=== PATIENT | female | born 1995 | race Caucasian/White ===

== ENCOUNTER 2017-07-07 13:39 | Emergency (ER) | payer MEDICAID ==
[2017-07-07 14:11] VITALS: BP 143/99
--- NOTE | 2017-07-07 14:30 | EDM.PDOC ---
ED HPI GENERAL MEDICAL PROBLEM - General Chief Complaint: ENT Problem Stated Complaint: TOOTH PAIN Time Seen by Provider: 07/07/17 14:20 Source of Information: Reports: Patient, RN Notes Reviewed - History of Present Illness INITIAL COMMENTS - FREE TEXT/NARRATIVE: 21-year-old female comes in with dental pain. She's had a cavitated somewhat chipped tooth for quite a long time. However that had not been given her much trouble up until a few days ago when she started having fairly severe pain not relieved with Tylenol or ibuprofen. She's had no fever chills. No facial swelling. No throat swelling or discomfort. 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 Denies: Throat Pain Respiratory: Denies: Shortness of Breath Cardiovascular: Denies: Chest Pain GI/Abdominal: Denies: Abdominal Pain, Nausea, Vomiting Musculoskeletal: Reports: No Symptoms Skin: Reports: No Symptoms Neurological: Reports: No Symptoms ED EXAM, ENT - Physical Exam Exam: See Below General Appearance: Alert, Moderate Distress Mouth/Throat: Dental Pain (right lower first molar, there is spurring minimal swelling of the gum tissue, no active drainage) Head: Facial Tenderness (mild tenderness of the jaw lateral to the tooth). No: Facial Swelling Neck: Supple, Full Range of Motion. No: Lymphadenopathy (L), Lymphadenopathy (R ) Respiratory/Chest: No Respiratory Distress, Lungs Clear, Normal Breath Sounds Cardiovascular: Regular Rate, Rhythm Neurological: Alert, Oriented, No Motor/Sensory Deficits Course - Vital Signs Last Recorded V/S: Last Vital Signs Temp 97.5 F 07/07/17 14:09 Pulse 79 07/07/17 14:09 Resp 20 07/07/17 14:09 BP 143/99 H 07/07/17 14:09 Pulse Ox 99 07/07/17 14:09 Departure - Departure Time of Disposition: 14:26 Disposition: Home, Self-Care 01 Condition: Fair Clinical Impression: Pain, dental - Discharge Information Prescriptions: Hydrocodone/Acetaminophen [Ivanhoe 5-325] 1 tab PO Q6HR PRN #10 tablet PRN Reason: Pain Naproxen [Naprosyn] 500 mg PO Q12HR #14 tablet Clindamycin HCl 300 mg PO TID #30 capsule Referrals: Hemal Ryan MD [Primary Care Provider] - Forms: ED Department Discharge, ED Return to Work/School Form Additional Instructions: clindamycin 500 mg 3 times daily, Naprosyn 500 mg twice daily, Tylenol 2-3 times daily in addition for extra pain relief or hydrocodone, especially at night if needed for severe pain not relieved by Naprosyn and Tylenol, do not take Tylenol and hydrocodone at the same time, do not drive when taking hydrocodone, see dentist as soon as possible
== END 2017-07-07 15:03 | disposition home or self-care (01) ==
LOC: JD.ED 13:39
DX: K08.89 Other specified disorders of teeth and supporting structures (principal); Z88.1 Allergy status to other antibiotic agents; Z79.899 Other long term (current) drug therapy
CPT/HCPCS: 99283

== ENCOUNTER 2017-08-08 16:05 | Emergency (ER) | payer MEDICAID ==
[2017-08-08 16:57] VITALS: BP 111/85
--- NOTE | 2017-08-08 16:59 | EDM.PDOC ---
ED HPI GENERAL MEDICAL PROBLEM - General Chief Complaint: ENT Problem Stated Complaint: TOOTH ACHE Time Seen by Provider: 08/08/17 16:45 Source of Information: Reports: Patient History Limitations: Reports: No Limitations - History of Present Illness INITIAL COMMENTS - FREE TEXT/NARRATIVE: 22-year-old female presents to the ED with severe pain left upper molar tooth. She's had positive his tooth once before. No said it is suffering dental caries but it's usually been nonproblematic. She received medication about 2 months ago for same pain. She had a dental problem arranged for this week but unfortunately her father and she had to leave the city last week. She now is a next dental product for scheduled for August 13. Describes pain is constant throbbing. Onset: Sudden Onset Date: 08/07/17 Duration: Hour(s): (Pain came on gradually yesterday and was quite bad during the night.) Location: Reports: Face (Left upper molar dental pain) Quality: Reports: Ache, Pressure, Throbbing Severity: Moderate Improves with: Reports: None Worsens with: Reports: None Context: Denies: Activity, Exercise, Lifting, Sick Contact, Trauma, Other Associated Symptoms: Reports: No Other Symptoms Treatments HISTORICAL RECORDS ADMINISTRATOR: Reports: NSAIDS, Other Medication(s), Other (see below) Other Treatments HISTORICAL RECORDS ADMINISTRATOR: Oragel Left Upper Oral/Mouth Pain Score (Numeric/FACES): 7 - Related Data Allergies Allergy/AdvReac Type Severity Reaction Status Date / Time amoxicillin Allergy Rash Verified 08/08/17 16:35 Home Meds: Home Meds Escitalopram [Lexapro] 10 mg PO DAILY 07/07/17 [History] Clindamycin HCl 300 mg PO TID #24 capsule 08/08/17 [Rx] Ibuprofen 600 mg PO Q8HR PRN 08/08/17 [History] oxyCODONE HCl/Acetaminophen [Percocet 5-325 mg Tablet] 1 - 2 each PO Q4H PRN # 20 tablet 08/08/17 [Rx] Past Medical History - Past Health History Medical/Surgical History: Denies Medical/Surgical History Genitourinary History: Reports: Renal Calculus Other Genitourinary History: Surgery 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 - Alcohol Use Days Per Week of Alcohol Use: 3 Number of Drinks Per Day: 2 Total Drinks Per Week: 6 - Recreational Drug Use Recreational Drug Use: No - Living Situation & Occupation Living situation: Reports: Occupation: Employed ED ROS ENT - Review of Systems Review Of Systems: See Below Constitutional: Reports: Fatigue, Decreased Appetite (From not sleeping.). Denies: Fever, Chills, Malaise, Weakness, Weight Loss HEENT: Reports: Dental Pain (Left upper molar tooth. She also has some bad dental caries involving the right lower first and second molar teeth. ) Respiratory: Reports: No Symptoms Cardiovascular: Reports: No Symptoms Endocrine: Reports: No Symptoms GI/Abdominal: Reports: No Symptoms : Reports: No Symptoms Musculoskeletal: Reports: No Symptoms Skin: Reports: No Symptoms Neurological: Reports: No Symptoms Psychiatric: Reports: No Symptoms, Other Hematologic/Lymphatic: Reports: No Symptoms Immunologic: Reports: No Symptoms ED EXAM, ENT - Physical Exam Exam: See Below Exam Limited By: No Limitations General Appearance: Alert, WD/WN, Mild Distress Eye Exam: Bilateral Eye: Normal Inspection Ears: Normal TMs Mouth/Throat: Dental Abcess (Suspect dental abscess left upper second molar tooth.), Dental Pain (Upper second molar tooth.), Dental Tenderness, Other ( Dental caries noted to be involving the right lower first and second molars.) Head: Atraumatic, Normocephalic Neck: Normal Inspection, Supple, Non-Tender, Full Range of Motion. No: Lymphadenopathy (L), Lymphadenopathy (R) Respiratory/Chest: No Respiratory Distress, Lungs Clear, Normal Breath Sounds, No Accessory Muscle Use Cardiovascular: Regular Rate, Rhythm, No Edema, No Murmur, No Rub Course - Vital Signs Last Recorded V/S: Last Vital Signs Temp 36.7 C 08/08/17 16:40 Pulse 76 08/08/17 16:40 Resp 16 08/08/17 16:40 BP 111/85 08/08/17 16:40 Pulse Ox 99 11/01/17 16:40 - Radiology Interpretation Free Text/Narrative:: 22-year-old female since the ED with acute onset of left upper molar dental pain. Examination shows no evidence of a dental abscess that I could drain. There is extensive dental caries involving the posterior aspect of this tooth. There is also dental caries involving the right lower second and first molars. Plan clindamycin 3 mg 3 times a day for 8 days Percocet tabs 5/3/25 one or 2 every 4-6 hours for pain relief in combination with Motrin or Aleve for pain relief. She has a follow-up with the dentist scheduled for next week. Note given to excuse her from the work place for the next couple of days. Departure - Departure Time of Disposition: 16:55 Disposition: Home, Self-Care 01 Condition: Fair Clinical Impression: Pain, dental, Pain due to dental caries - Discharge Information Prescriptions: Clindamycin HCl 300 mg PO TID #24 capsule oxyCODONE HCl/Acetaminophen [Percocet 5-325 mg Tablet] 1 - 2 each PO Q4H PRN # 20 tablet PRN Reason: pain relief. Referrals: PCP,None [Primary Care Provider] - Forms: ED Department Discharge, ED Return to Work/School Form Additional Instructions: Evaluation in the emergency department today in regards to dental pain left upper second molar tooth which is decayed. Suspect dental abscess formation to cause exacerbation of pain asthe dental carries have been present for a lengthy period of time. Suggest treatment to be antibiotic clindamycin 300 mg 3 times daily for the next 8 days to clear up any dental infection. Continue Motrin 600 mg every 6 hours or Aleve 2 tablets every 8 hours to relieve pain and inflammation. May use Percocet 5/3/25 milligram tablets one or 2 every 4-6 hours for pain not controlled by Motrin or Aleve alone. Follow-up with dentist as soon as able.
== END 2017-08-08 17:11 | disposition home or self-care (01) ==
LOC: JD.ED 16:05
DX: K02.9 Dental caries, unspecified (principal); F32.9 Major depressive disorder, single episode, unspecified; F17.210 Nicotine dependence, cigarettes, uncomplicated; Z88.1 Allergy status to other antibiotic agents; Z79.899 Other long term (current) drug therapy
CPT/HCPCS: 99283

== ENCOUNTER 2019-12-06 12:53 | Emergency (ER) | payer SELFPAY ==
[2019-12-06 13:26] VITALS: BP 109/77; PULSE 113
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
[2019-12-06] MEDS ORDERED: Ibuprofen 800 MG Tab PO ONE (14:35)
== END 2019-12-06 14:40 | disposition home or self-care (01) ==
LOC: JD.ED 12:53
DX: R41.2 Retrograde amnesia (principal); F17.210 Nicotine dependence, cigarettes, uncomplicated; F32.9 Major depressive disorder, single episode, unspecified; Z79.899 Other long term (current) drug therapy; Z88.1 Allergy status to other antibiotic agents
CPT/HCPCS: 80306; 99284; A9270; 99282

== ENCOUNTER 2021-08-08 05:32 | Inpatient (IN) | payer MEDICAID ==
--- NOTE | 2021-08-07 21:55 | PCM.LDHP ---
L&D History of Present Illness - General Date of Service: 08/08/21 Admit Problem/Dx: Admission Diagnosis/Problem Admission Diagnosis/Problem 08/07/21 21:44 Peace is a 26-year-old 2 para 1-0-0-1 female at 39-2/7 weeks gestational age with an BRENT of 08/13/2021 admitted on the a.m. of 08/08/2021 for elective repeat section. Source of Information: Patient History Limitations: Reports: No Limitations - History of Present Illness Introduction:: Peace is a 26-year-old 2 para 1-0-0-1 female at 39-2/7 weeks gestational age with an BRENT of 08/13/2021 admitted on the a.m. of 08/08/2021 for elective repeat section. The procedure, risk, benefits, alternatives of care including attempt at vaginal after section are all discussed in detail with patient. She appears understand and wishes to proceed. 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 Patient had menarche at age 9. Cycles are q. 30 days. Last menstrual period however was unknown. She is not using any control at the time of conception. Patient has no history of abnormal Pap smears or STIs. First was done for failure to progress. Past obstetric history includes: Female delivered 11/14/2016 at 40-1/7 weeks gestational age after 22 hours of labor. Baby weighed 8 pounds 6 ouncesdelivered by primary section using epidural for anesthesia. Child's name is Rachael. course: First visit was on 02/09/2021 at 13-4/7 weeks gestational age. Because of unknown dates the ultrasound at that time was used to set her BRENT at 08/13/2021. 2 other ultrasounds done on 02/23/2021 and 03/28/2020 and were consistent with the initial ultrasound evaluation and estimation of dates. Patient was seen on a very regular basis throughout the . Her weight increased from 145.8 pounds to 171.1 pounds. Vital signs remained stable throughout the course and fundal height growth was appropriate. Patient has a history of anxiety and depression. She has been on sertraline 100 mg 2 tablets p.o. daily. EPDS score on 04/20/2021 was 27/30. Patient was referred to [facility] for treatment in addition to her sertraline therapy. First was done for failure to progress. Flu shot was given on 07/13/2021. Patient plans on breast-feeding but does have inverted nipples. Prequel noninvasive screen was low risk for trisomy 21, 18 and 13. She had Covid on 05/30/2021 and has had no continued symptomatology from this. Immunization record shows influenza shot on 07/13/2021. Tdap given on 05/25/2021. MMR shows rubella immunity. Laboratory evidence of varicella immunity noted. Patient pneumococcal immunization 2017. Laboratory testing: Blood is a positive with a negative antibody screen. First laboratory testing shows a hemoglobin of 12.5 g/dL. Platelets were 305,000. Pap smear was negative. Rubella titer shows immunity. RPR is nonreactive. Urine culture was negative. Hepatitis B surface antigen and HIV assays were both negative. Chlamydia, gonorrhea and HCV antibody were negative. Prequel noninvasive screen consistent with low risk for trisomy 21, 18 and 13. Second trimester labs showed a hemoglobin of 10.7 g/dL. Platelets were 213,000. 1 hour GTT was normal at 107. Group B strep screen was negative. Allergies: Amoxicillin which causes a rash Medications: 1. vitamins 1 daily 2. Zofran 4 mg every 4 hours as needed for nausea during early only. 3. Sertraline 100 mg tablets p.o. daily. Past medical history: 1. Anxiety/depression on medications 2. Amoxicillin which causes a rash 3. Kidney stones Past surgical history: 1. 2017failure to progress Family history: Mother is secondary to an MVA in May 2020did have a history of hypertension. Father is secondary to suicide in 2017had a history of a stroke.. 2 brothers are alive. Maternal grandmother is alive and well. Maternal grandfather is alive but with a history of diabetes and hypertension. Paternal grandmother is secondary to breast cancer. Paternal grandfather secondary to lung cancerwas a smoker. No anesthesia, bleeding, or blood clotting problems in the family. Social history: Patient is . She is not employed outside the home. She lives in [place], [place]. She does not use any significance alcohol, drugs or tobacco. is Steve Pinon. Review of systems: Review of systems: In general patient has no complaints. Baby has been active. No significant contractions have been noted. Skin: Negative Lungs: No infectious symptoms or shortness of breath Cardiovascular: No chest pain or exercise intolerance Breasts: No lumps, changes in size, pain, dimpling, discharge or axillary or supraclavicular concerns. GI: Negative : Findings consistent with term . Musculoskeletal: Negative Neurological: Negative Physical exam: In general the patient is well-developed, well-nourished, pleasant female of stated age in no acute distress. On last evaluation clinic on 08/03/2021 blood pressure is 106/68. Weight was 171 with a pregravid weight of 145.8. Height is 5 feet 2 inches. Pregravid BMI was 23.8 Skin is warm dry without lesions. HEENT, neck and back within normal limits. Lungs are clear with good breath sounds in all lung salcido. Cardiovascular exam shows regular and rhythm without murmurs. Breast exam is deferred have been done at first visit and found to be normal is not performed at this time. Patient does plan to breast-feed. Abdomen is gravid with last fundal height in clinic at 39 cm. Baby in vertex presentation.. Genital digital exam on 08/03/2021 showed cervix to be closed, 70% effaced, soft, mid position, -3 station, vertex presentation. Extremities and neurological exam are grossly within normal limits. 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 - Recreational Drug Use Recreational Drug Use: No - Living Situation & Occupation Living situation: Reports: Occupation: Employed H&P Review of Systems - Review of Systems: Review Of Systems: See Below L&D Exam - Exam Exam: See Below - Problem List (1) 39 weeks gestation of SNOMED Code(s): 42209949 ICD Code: Z3A.39 - 39 WEEKS GESTATION OF Status: Acute (2) Previous section SNOMED Code(s): 128053354 ICD Code: Z98.891 - HISTORY OF UTERINE SCAR FROM PREVIOUS SURGERY Status: Acute (3) Depression SNOMED Code(s): 85315578 ICD Code: F32.A - DEPRESSION, UNSPECIFIED Status: Acute Qualifiers: Depression Type: depression during Trimester: third trimester Qualified Code(s): O99.343 - Other mental disorders complicating , third trimester; F32.A - Depression, unspecified (4) Anxiety SNOMED Code(s): 16017014 ICD Code: F41.9 - ANXIETY DISORDER, UNSPECIFIED Status: Acute (5) History of COVID-19 SNOMED Code(s): 235139464020265953, 229271237349107072 ICD Code: Z86.16 - PERSONAL HISTORY OF COVID-19 Status: Acute Problem List Initiated/Reviewed/Updated: Yes Assessment/Plan Comment:: 1Mike Hand is a 26-year-old 2 para 1-0-0-1 female at 39-2/7 weeks gestational age with an BRENT of 08/13/2021 admitted on the a.m. of 08/08/2021 for elective repeat section. 2. Group B strep negative 3. History of previous section done for failure to progresspatient desires repeat section. 4. History of Covid in with no residual effects at this time. 5. Patient plans to breast-feed 6. Patient has had her flu immunization on 07/13/2021 and her Tdap on 05/25/2021 7. Risk factors for the include: Previous section, history of depression/anxietyon meds, rash from amoxicillin. Plan: 1. Repeat lower uterine segment transverse section through Pfannenstiel skin incision under spinal block. Procedure, risk, benefits, alternatives of care and follow-up were discussed in detail with patient. She appears understand and wishes to proceed. Consent has been signed. 2. Routine preoperative labs including type and screen, CBC, urine analysis, Covid testing per protocolpatient may not need this as she is within 3 months of her infection, RPR. 3. DVT prophylaxis with SCDs 4. Ancef 2 g IV preop for infection prophylaxis 5. Support breast-feeding decision 6. Valve Grinder to be in attendance for .
[~2021-08-08 05:32] MED LIST: Sodium Chloride 0.9% 10 ML Syringe FLUSH PRN
[2021-08-08] MEDS ORDERED: ceFAZolin 2 GM in Premix Bag 1 BAG IV ONE (05:59)
[2021-08-08] MEDS ORDERED: Citric Acid/Sodium Citrate Solution 30 ML Cup PO ONE (06:00)
[2021-08-08] MEDS ORDERED: Metoclopramide 10 MG/2 ML SDV IVPUSH ONE (06:00)
[2021-08-08] MEDS ORDERED: Lactated Ringers 1,000 ML ONE ×2 (06:03→08:16)
[2021-08-08] MEDS: Lactated Ringers 1,000 ML IV SCH ×2 (06:15→07:20)
[2021-08-08] MEDS ORDERED: Bupivacaine 0.5% 30 ML SDV ONE (07:20)
[2021-08-08] MEDS ORDERED: diphenhydrAMINE 50 MG/ML SDV IVPUSH PRN ×2 (07:28→10:23)
[2021-08-08] MEDS ORDERED: Ondansetron 4 MG/2 ML SDV IVPUSH PRN (07:28)
--- NOTE | 2021-08-08 07:38 | PCM.PREANE ---
Preanesthetic Assessment - Procedure Proposed Procedure: repeat Section - Anesthesia/Transfusion/Family Hx Anesthesia History: Prior Anesthesia Without Reaction Family History of Anesthesia Reaction: No Transfusion History: No Prior Transfusion(s) Intubation History: Unknown (denieds ) - Review of Systems General: No Symptoms Pulmonary: No Symptoms Cardiovascular: No Symptoms Gastrointestinal: No Symptoms Neurological: No Symptoms Other: Reports: Depression, Anxiety - Physical Assessment NPO Status Date: 08/07/21 NPO Status Time: 23:00 Vital Signs: Last Vital Signs Temp 36.9 C 08/08/21 05:51 Pulse 90 08/08/21 05:51 Resp 16 08/08/21 05:51 BP 135/98 H 08/08/21 05:51 Pulse Ox 98 08/08/21 05:51 Height: 1.57 m Weight: 78.925 kg ASA Class: 2 Mental Status: Alert & Oriented x3 Airway Class: Mallampati = 1 Dentition: Reports: Normal Dentition Thyro-Mental Finger Breadths: 3 Mouth Opening Finger Breadths: 5 ROM/Head Extension: Full Lungs: Clear to Auscultation, Normal Respiratory Effort Cardiovascular: Regular Rate, Regular Rhythm - Lab Values: Laboratory Last Values WBC 8.51 K/mm3 (3.98-10.04) 08/08/21 06:08 RBC 3.75 M/mm3 (3.98-5.22) L 08/08/21 06:08 Hgb 11.6 gm/dl (11.2-15.7) 08/08/21 06:08 Hct 35.3 % (34.1-44.9) 08/08/21 06:08 MCV 94.1 fl (79.4-94.8) 08/08/21 06:08 MCH 30.9 pg (25.6-32.2) 08/08/21 06:08 MCHC 32.9 g/dl (32.2-35.5) 08/08/21 06:08 RDW Std Deviation 43.0 fL (36.4-46.3) 08/08/21 06:08 Plt Count 190 K/mm3 (182-369) 08/08/21 06:08 MPV 10.9 fl (9.4-12.3) 08/08/21 06:08 Neut % (Auto) 61.2 % (34.0-71.1) 08/08/21 06:08 Lymph % (Auto) 28.2 % (19.3-51.7) 08/08/21 06:08 [place] % (Auto) 9.5 % (4.7-12.5) 08/08/21 06:08 Eos % (Auto) 0.7 (0.7-5.8) 08/08/21 06:08 Baso % (Auto) 0.2 % (0.1-1.2) 08/08/21 06:08 Neut # (Auto) 5.20 K/mm3 (1.56-6.13) 08/08/21 06:08 Lymph # (Auto) 2.40 K/mm3 (1.18-3.74) 08/08/21 06:08 [place] # (Auto) 0.81 K/mm3 (0.24-0.36) H 08/08/21 06:08 Eos # (Auto) 0.06 K/mm3 (0.04-0.36) 08/08/21 06:08 Baso # (Auto) 0.02 K/mm3 (0.01-0.08) 08/08/21 06:08 - Allergies Allergies/Adverse Reactions: Allergies Allergy/AdvReac Type Severity Reaction Status Date / Time amoxicillin Allergy Rash Verified 08/08/17 16:35 - Blood Blood Available: Yes - Anesthesia Plan Pre-Op Medication Ordered: Antacids - Acknowledgements Anesthesia Type Planned: Spinal Pt an Appropriate Candidate for the Planned Anesthesia: Yes Alternatives and Risks of Anesthesia Discussed w Pt/Guardian: Yes Pt/Guardian Understands and Agrees with Anesthesia Plan: Yes PreAnesthesia Questionnaire - Past Health History Medical/Surgical History: Denies Medical/Surgical History Genitourinary History: Reports: Renal Calculus Other Genitourinary History: 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: Psychiatric History: Reports: Anxiety, Depression - Infectious Disease History Infectious Disease History: Reports: Chicken Pox - Past Surgical History Female Surgical History: Reports: Kidney stone extraction - SUBSTANCE USE Tobacco Use Status *Q: Never Tobacco User Tobacco Use Within Last Twelve Months: Vaping Recreational Drug Use History: No - HOME MEDS Home Medications: Home Meds Sertraline [Zoloft] 150 mg PO DAILY 12/06/19 [History] Acetaminophen [Tylenol] 650 mg PO Q6HR PRN 08/07/21 [History] Pnv,Calcium 72/Iron,Carb/Folic [ Plus Iron Tablet] 1 each PO DAILY 08/07/21 [History] - CURRENT (IN HOUSE) MEDS Current Meds: Current Medications Diphenhydramine HCl (Diphenhydramine 50 Mg/Ml Sdv) 25 mg IVPUSH Q6H PRN PRN Reason: Pruritis Oxytocin/Lactated Ringer's (Pitocin In Lr 20 Units/1,000 Ml) 20 unit in 1,000 mls @ 500 mls/hr IV TITRATE CHELLE; Protocol Lactated Ringer's (Ringers, Lactated) 1,000 mls @ 125 mls/hr IV ASDIRECTED CHELLE Last Admin: 08/08/21 07:20 Dose: 125 mls/hr Documented by: Ondansetron HCl (Ondansetron 4 Mg/2 Ml Sdv) 4 mg IVPUSH ONETIME PRN PRN Reason: Nausea/Vomiting Sodium Chloride (Sodium Chloride 0.9% 10 Ml Syringe) 10 ml FLUSH ASDIRECTED PRN PRN Reason: Keep Vein Open Discontinued Medications Bupivacaine HCl (Bupivacaine 0.5% 30 Ml Sdv) Confirm Administered Dose 30 ml .ROUTE .STK-MED ONE Stop: 08/08/21 07:21 Citric Acid/Sodium Citrate (Citric Acid/Sodium Citrate Solution 30 Ml Cup) 30 ml PO ONETIME ONE Stop: 08/08/21 06:01 Last Admin: 08/08/21 07:21 Dose: 30 ml Documented by: Cefazolin Sodium/Dextrose 2 gm (/ Premix) 50 mls @ 100 mls/hr IV ONETIME ONE Stop: 08/08/21 06:28 Lactated Ringer's (Ringers, Lactated) Confirm Administered Dose 1,000 mls @ as directed .ROUTE .STK-MED ONE Stop: 08/08/21 06:04 Last Admin: 08/08/21 07:21 Dose: Not Given Documented by: Metoclopramide HCl (Metoclopramide 10 Mg/2 Ml Sdv) 10 mg IVPUSH ONETIME ONE Stop: 08/08/21 06:01 Last Admin: 08/08/21 07:21 Dose: 10 mg Documented by:
[2021-08-08] MEDS ORDERED: Oxytocin/Lactated Ringers 20 UNIT/1,000 ML BAG IV SCH (08:00)
[2021-08-08] MEDS ORDERED: ceFAZolin 1 GM Vial ONE (08:16)
[2021-08-08] MEDS ORDERED: Ondansetron 4 MG/2 ML SDV ONE (08:16)
[2021-08-08] MEDS ORDERED: Ketorolac 30 MG/ML SDV ONE (08:16)
[2021-08-08] MEDS ORDERED: Oxytocin 10 Units/1 ML SDV ONE (08:16)
[2021-08-08] MEDS ORDERED: Morphine PF 10 MG/10 ML SDV ONE (08:16)
--- NOTE | 2021-08-08 08:51 | PCM.POSTAN ---
POST ANESTHESIA ASSESSMENT - MENTAL STATUS Mental Status: Alert - VITAL SIGNS Vital Signs: Last Vital Signs 117/57 95 ra 75 11 97.5 Temp 36.9 C 08/08/21 05:51 Pulse 90 08/08/21 05:51 Resp 16 08/08/21 05:51 BP 135/98 H 08/08/21 05:51 Pulse Ox 98 08/08/21 05:51 - RESPIRATORY Respiratory Status: Respiratory Rate WNL, Airway Patent, O2 Saturation Stable, Supplemental Oxygen - CARDIOVASCULAR CV Status: Pulse Rate WNL, Blood Pressure Stable - GASTROINTESTINAL GI Status: No Symptoms - PAIN Pain Score: 0 - POST OP HYDRATION Hydration Status: Adequate & Stable
--- NOTE | 2021-08-08 09:15 | PCM.OPNOTE ---
- General Post-Op/Procedure Note Date of Surgery/Procedure: 08/08/21 Operative Procedure(s): Repeat lower uterine segment transverse section through Pfannenstiel skin incision Findings: Uterus, tubes and ovaries consistent with term . Only abnormality is small 1 cm fibroid right anterior portion of the uterus. Otherwise normal anatomy. Minimal scarring noted in the anterior abdominal wall baby in vertex presentation. Amniotic fluid is clear. Weight was 8 pounds 6 ounces (3800 g). Apgars were 8 and 8. time was 0319 hrs. on 08/08/2021 Pre Op Diagnosis: 1. 39-week intrauterine . 2. History of previous section desire for repeat section Post-Op Diagnosis: Same Anesthesia Technique: Spinal Other Anesthesia Type: Marcaine 0.5% - 20 cc local Primary Surgeon: Hemal Ryan Secondary Surgeon: Darya Fleming Anesthesia Provider: Francine Toribio Reason Box Toe Flanger Stitchdowns Was Necessary: Traction, assistance, patient safety, quality of care. Fluid Replacement, Intraop: 1,000 Output, Urine Amount: 50 EBL in mLs: 500 Drain/Tube Comments:: Indwelling bladder catheter Complications: None Condition: Good Free Text/Narrative:: Intake & Output 08/07/21 08/08/21 08/08/21 22:59 06:59 14:59 Output Total 50 Balance -50 Surgery duration: 24 minutes Surgery duration: Procedure: The patient is appropriately consented. Patient was transferred to the room and placed in a sitting position. Spinal anesthesia was administered. After confirmation of adequate anesthesia patient was placed in a supine position with a wedge under her right side to facilitate left lateral positioning. The patient was prepped and draped in usual fashion after Tang catheter was already placed . The anesthetic was checked and found to be adequate. 20 mL of Marcaine 0.5% was injected locally in the Pfannenstiel incision site. The Pfannenstiel skin incision was then made and carried down through skin, subcutaneous and fascial layers. The fascia was then undermined superiorly and inferiorly to allow for adequate operating room. The recti muscles midline and preperitoneal fat was bluntly dissected. Peritoneal cavity was entered longitudinally. The vesicouterine peritoneum was then incised transversely and bladder flap was developed. Myometrium was incised transversely to the level of the amniotic sac. This incision was extended bilaterally in a blunt fashion. The amniotic sac was then ruptured resulting in clear amniotic fluid. A hand is placed in the low uterine segment and the baby's head was brought forth through the incision. The baby was completely delivered using fundal pressure in a routine fashion. The nose and mouth were bulb suctioned. Baby's cord was clamped x2 cut and baby was handed off to attending violin repairer Dr Leslie. Placenta was expressed after cord blood was obtained. Uterus was then exteriorized to allow for easier closure. The cervix was assessed and found to be dilated adequately to allow egress of blood. The uterus was closed in 2 layers. The first layer a running locked suture of 0 Monocryl, the second layer a running locked vertical mattress suture of 0 Monocryl. Hemostasis confirmed at this time. Sponge instrument needle counts are correct. The uterus was returned to the abdominal cavity and lateral gutters were cleared of blood. Once again sponge needle counts are correct. The anterior abdominal wall was closed with a #1 PDS suture from angle to angle. The subcutaneous area was found to be free of any bleeders. interrupted sutures of 3-0 Monocryl were used to reapproximate the subcutaneous layer.Skin was closed with a running subcuticular stitch of 3-0 Monocryl in a vertical mattress suture fashion using a Bryce needle. Prineo mesh/glue was then applied to further approximate the incision. It should be noted that patient received 2 g of Ancef preoperatively for infection prophylaxis and had Pitocin infused after delivery of the placenta to facilitate uterine contraction. She also had sequential compression stockings in place for DVT prophylaxis. Patient was discharged from the operating room in satisfactory condition.
[2021-08-08] MEDS ORDERED: ePHEDrine 50 MG/ML SDV IVPUSH PRN (10:23)
[2021-08-08] MEDS ORDERED: Dextrose 5%-Lactated Ringers 1,000 ML IV SCH (10:23)
[2021-08-08] MEDS ORDERED: Ondansetron 4 MG/2 ML SDV IV PRN (10:23)
[2021-08-08] MEDS ORDERED: Naloxone 0.4 MG/ML SDV IVPUSH PRN (10:23)
[2021-08-08] MEDS ORDERED: Acetaminophen/oxyCODONE 325-5 MG Tab PO PRN (10:23)
[2021-08-08] MEDS: Acetaminophen/oxyCODONE 325-5 MG Tab PO PRN ×4 (10:35→22:11)
[2021-08-08] MEDS: Ibuprofen 800 MG Tab PO SCH ×2 (14:33→22:11)
[2021-08-08] MEDS: Simethicone 80 MG Tab.Chew PO SCH ×3 (14:33→22:00)
[2021-08-08] MEDS ORDERED: Lactated Ringers 1,000 ML IV ONE (18:36)
[2021-08-09] MEDS: Acetaminophen/oxyCODONE 325-5 MG Tab PO PRN ×5 (03:55→21:13)
[2021-08-09] MEDS: Ibuprofen 800 MG Tab PO SCH ×3 (06:12→22:39)
--- NOTE | 2021-08-09 08:27 | PCM48HPAN ---
Post Anesthesia Note - EVALUATION WITHIN 48HRS OF ANESTHETIC Vital Signs in Normal Range: Yes Patient Participated in Evaluation: Yes Respiratory Function Stable: Yes Airway Patent: Yes Cardiovascular Function Stable: Yes Hydration Status Stable: Yes Pain Control Satisfactory: Yes Nausea and Vomiting Control Satisfactory: Yes Mental Status Recovered: Yes Vital Signs: Last Vital Signs Temp 98.2 F 08/09/21 06:09 Pulse 73 08/09/21 06:09 Resp 14 08/09/21 06:09 BP 135/87 08/09/21 06:09 Pulse Ox 99 08/09/21 06:09 - COMMENTS/OBSERVATIONS Free Text/Narrative:: rests in bed- some pain with movement
[2021-08-09] MEDS: Prenatal Multivitamin with Calcium/Folic Acid/Iron Tab PO SCH (08:51)
[2021-08-09] MEDS: Simethicone 80 MG Tab.Chew PO SCH ×4 (08:51→22:39)
[2021-08-09] MEDS: Sertraline 50 MG Tab PO SCH (08:56)
--- NOTE | 2021-08-09 09:24 | PCM.SN.2 ---
- Free Text/Narrative Note: note: Postoperative day #1. Patient is doing well in the period. Minimal lochia, voiding well, ambulated without problems. Nursing without concerns. Patient is afebrile, vital signs are stable Clear with good breath sounds in all lung salcido. Cardiovascular exam shows regular rate and rhythm. Abdomen is flat, soft, uterus is below the umbilicus and is firm and nontender. Incision is dry and intact. Legs are nontender. Globin is 10.1. Platelets are 165,000 Assessment: Postoperative/ #1recovery going well. Plan: Routine care. Patient be discharged home within the next 24-48 hours. Time Documentation
[2021-08-09] MEDS ORDERED: Nalbuphine 10 MG/1 ML Vial IVPUSH ONE (14:44)
[2021-08-09] MEDS ORDERED: hydrOXYzine HCl 25 MG Tab PO PRN (17:46)
[2021-08-09] MEDS: Docusate Sodium 100 MG Cap PO PRN (18:40)
[2021-08-10] MEDS: Acetaminophen/oxyCODONE 325-5 MG Tab PO PRN ×2 (01:29→06:09)
[2021-08-10] MEDS: Ibuprofen 800 MG Tab PO SCH (06:43)
[2021-08-10] MEDS: Docusate Sodium 100 MG Cap PO PRN (06:44)
--- NOTE | 2021-08-10 07:44 | PCM.DCSUM1 ---
Discharge Summary - Hospital Course Diagnosis: Stroke: No - Discharge Data Discharge Date: 08/10/21 Discharge Disposition: Home, Self-Care 01 Condition: Good - Referral to Home Health Primary Care Physician: Hemal Ryan MD - Patient Summary/Data Operative Procedure(s) Performed: Repeat lower uterine segment transverse section through Pfannenstiel skin incision Hospital Course: Weight was 8 pounds 6 ounces (3800 g). Apgars were 8 and 8. time was 0319 hrs. on 08/08/2021 POD2 expressed desire for discharge. Uncomplicated course - Patient Instructions Diet: Usual Diet as Tolerated Activity: No Strenuous Activities Activity, Other: pelvic rest Driving: Do Not Drive Showering/Bathing: May Shower Wound/Incision Care: Keep Operative Site/Wound Site Clean and Dry Notify Provider of: Fever, Increased Pain, Swelling and Redness, Drainage, Nausea and/or Vomiting - Discharge Plan *PRESCRIPTION DRUG MONITORING PROGRAM REVIEWED*: No *COPY OF PRESCRIPTION DRUG MONITORING REPORT IN PATIENT SEB: No Home Medications: Home Meds Sertraline [Zoloft] 150 mg PO DAILY 12/06/19 [History] Acetaminophen [Tylenol] 650 mg PO Q6HR PRN 08/07/21 [History] Pnv,Calcium 72/Iron,Carb/Folic [ Plus Iron Tablet] 1 each PO DAILY [History] Patient Handouts: Electronic Cigarette Information, Steps to Quit Smoking - Discharge Summary/Plan Comment DC Time >30 min.: No Total # of Minutes for Discharge Time: 15 - General Info Date of Service: 08/10/21 Functional Status: Reports: Pain Controlled - Review of Systems General: Reports: No Symptoms HEENT: Reports: No Symptoms Pulmonary: Reports: No Symptoms Cardiovascular: Reports: No Symptoms Gastrointestinal: Reports: No Symptoms Genitourinary: Reports: No Symptoms Musculoskeletal: Reports: No Symptoms Skin: Reports: No Symptoms Neurological: Reports: No Symptoms Psychiatric: Reports: No Symptoms - Patient Data Vitals - Most Recent: Last Vital Signs Temp 36.6 C 08/10/21 03:25 Pulse 64 08/10/21 03:25 Resp 15 08/10/21 03:25 BP 138/87 08/10/21 03:25 Pulse Ox 99 08/10/21 03:25 Weight - Most Recent: 78.925 kg Med Orders - Current: Current Medications Diphenhydramine HCl (Diphenhydramine 50 Mg/Ml Sdv) 25 mg IVPUSH Q6H PRN PRN Reason: Itching or Nausea Docusate Sodium (Docusate Sodium 100 Mg Cap) 100 mg PO Q12H PRN PRN Reason: Constipation Last Admin: 08/10/21 06:44 Dose: 100 mg Documented by: Ephedrine Sulfate (Ephedrine 50 Mg/Ml Sdv) 5 mg IVPUSH SEECOMMENT PRN PRN Reason: Other Hydroxyzine HCl (Hydroxyzine Hcl 25 Mg Tab) 25 mg PO Q6H PRN PRN Reason: Pain (moderate 4-6) Ibuprofen (Ibuprofen 800 Mg Tab) 800 mg PO Q8H [facility] Last Admin: 08/10/21 06:43 Dose: 800 mg Documented by: Naloxone HCl (Naloxone 0.4 Mg/Ml Sdv) 0.1 mg IVPUSH SEECOMMENT PRN PRN Reason: Respiratory Depression Ondansetron HCl (Ondansetron 4 Mg/2 Ml Sdv) 4 mg IV Q4H PRN PRN Reason: Nausea/Vomiting Oxycodone/Acetaminophen (Acetaminophen/Oxycodone 325-5 Mg Tab) 1 tab PO Q4H PRN PRN Reason: Pain (moderate 4-6) Oxycodone/Acetaminophen (Acetaminophen/Oxycodone 325-5 Mg Tab) 2 tab PO Q4H PRN PRN Reason: Pain (severe 7-10) Last Admin: 08/10/21 06:09 Dose: 2 tab Documented by: Prenat Multivit/[place]/Iron/Folic Ac ( Multivitamin With Calcium/Folic Acid/Iron Tab) 1 each PO DAILY [facility] Last Admin: 08/09/21 08:51 Dose: 1 each Documented by: Sertraline HCl (Sertraline 50 Mg Tab) 150 mg PO DAILY [facility] Last Admin: 08/09/21 08:56 Dose: 150 mg Documented by: Simethicone (Simethicone 80 Mg Tab.Chew) 80 mg PO 0900,1300,1800,2200 [facility] Last Admin: 08/09/21 22:39 Dose: 80 mg Documented by: Discontinued Medications Bupivacaine HCl (Bupivacaine 0.5% 30 Ml Sdv) Confirm Administered Dose 30 ml .ROUTE .STK-MED ONE Stop: 08/08/21 07:21 Last Admin: 08/08/21 09:23 Dose: 20 ml Documented by: Cefazolin Sodium (Cefazolin 1 Gm Vial) Confirm Administered Dose 2 gm .ROUTE .STK-MED ONE Stop: 08/08/21 08:17 Citric Acid/Sodium Citrate (Citric Acid/Sodium Citrate Solution 30 Ml Cup) 30 ml PO ONETIME ONE Stop: 08/08/21 06:01 Last Admin: 08/08/21 07:21 Dose: 30 ml Documented by: Diphenhydramine HCl (Diphenhydramine 50 Mg/Ml Sdv) 25 mg IVPUSH Q6H PRN PRN Reason: Pruritis Oxytocin/Lactated Ringer's (Pitocin In Lr 20 Units/1,000 Ml) 20 unit in 1,000 mls @ 500 mls/hr IV TITRATE CHELLE; Protocol Lactated Ringer's (Ringers, Lactated) 1,000 mls @ 125 mls/hr IV ASDIRECTED [facility] Last Admin: 08/08/21 07:20 Dose: 125 mls/hr Documented by: Cefazolin Sodium/Dextrose 2 gm (/ Premix) 50 mls @ 100 mls/hr IV ONETIME ONE Stop: 08/08/21 06:28 Last Admin: 08/08/21 10:58 Dose: Not Given Documented by: Lactated Ringer's (Ringers, Lactated) Confirm Administered Dose 1,000 mls @ as directed .ROUTE .ST-MED ONE Stop: 08/08/21 06:04 Last Admin: 08/08/21 07:21 Dose: Not Given Documented by: Lactated Ringer's (Ringers, Lactated) Confirm Administered Dose 1,000 mls @ as directed .ROUTE .ST-MED ONE Stop: 08/08/21 08:17 Dextrose/Lactated Ringer's (Dextrose 5%-Lactated Ringers) 1,000 mls @ 125 mls/hr IV ASDIRECTED [facility] Stop: 08/08/21 18:22 Last Admin: 08/08/21 10:36 Dose: 125 mls/hr Documented by: Lactated Ringer's (Ringers, Lactated) 1,000 mls @ 999 mls/hr IV .BOLUS ONE Stop: 08/08/21 19:36 Last Admin: 08/08/21 19:14 Dose: 999 mls/hr Documented by: Ketorolac Tromethamine (Ketorolac 30 Mg/Ml Sdv) Confirm Administered Dose 30 mg .ROUTE .STK-MED ONE Stop: 08/08/21 08:17 Metoclopramide HCl (Metoclopramide 10 Mg/2 Ml Sdv) 10 mg IVPUSH ONETIME ONE Stop: 08/08/21 06:01 Last Admin: 08/08/21 07:21 Dose: 10 mg Documented by: Morphine Sulfate (Morphine Pf 10 Mg/10 Ml Sdv) Confirm Administered Dose 10 mg .ROUTE .STK-MED ONE Stop: 08/08/21 08:17 Nalbuphine HCl (Nalbuphine 10 Mg/1 Ml Vial) 5 mg IVPUSH ONETIME ONE Stop: 08/09/21 14:45 Last Admin: 08/09/21 15:28 Dose: 5 mg Documented by: Ondansetron HCl (Ondansetron 4 Mg/2 Ml Sdv) 4 mg IVPUSH ONETIME PRN PRN Reason: Nausea/Vomiting Ondansetron HCl (Ondansetron 4 Mg/2 Ml Sdv) Confirm Administered Dose 4 mg .ROUTE .STK-MED ONE Stop: 08/08/21 08:17 Oxytocin (Oxytocin 10 Units/1 Ml Sdv) Confirm Administered Dose 20 unit .ROUTE .STK-MED ONE Stop: 08/08/21 08:17 Sodium Chloride (Sodium Chloride 0.9% 10 Ml Syringe) 10 ml FLUSH ASDIRECTED PRN PRN Reason: Keep Vein Open - Exam General: Reports: Alert, Oriented HEENT: Reports: Pupils Equal, Pupils Reactive, EOMI, Mucous Membr. Moist/[place] Neck: Reports: Supple Lungs: Reports: Clear to Auscultation, Normal Respiratory Effort Cardiovascular: Reports: Regular Rate, Regular Rhythm GI/Abdominal Exam: Normal Bowel Sounds, Soft, Non-Tender (Female) Exam: Deferred Rectal (Female) Exam: Normal Exam, Normal Rectal Tone Back Exam: Reports: Normal Inspection, Full Range of Motion Extremities: Normal Inspection, Normal Range of Motion, Non-Tender, No Pedal Edema, Normal Capillary Refill Skin: Reports: Warm, Dry, Intact Wound/Incisions: Reports: Healing Well Neurological: Reports: No New Focal Deficit Psy/Mental Status: Reports: Alert, Normal Affect, Normal Mood
[2021-08-10] MEDS: Sertraline 50 MG Tab PO SCH (08:46)
[2021-08-10] MEDS: Prenatal Multivitamin with Calcium/Folic Acid/Iron Tab PO SCH (08:46)
[2021-08-10] MEDS: Simethicone 80 MG Tab.Chew PO SCH (08:47)
[2021-08-10 10:35] VITALS: BP 136/93; PULSE 71
== END 2021-08-10 10:37 | disposition home or self-care (01) | DRG 788 ==
LOC: UNDOADMIN 05:32 → JD.OB 05:32 → UNDODISIN 08-10 10:37
PROVIDERS: ADMIT Obstetrics & Gynecology; ATTEND Obstetrics & Gynecology
PROC: 10D00Z1 Extraction of Products of Conception, Low, Open Approach (ICD-10-PCS; principal; 2021-08-08)
DX: O34.211 Maternal care for low transverse scar from previous cesarean delivery (principal); O99.344 Other mental disorders complicating childbirth; F41.9 Anxiety disorder, unspecified; F32.A Depression, unspecified; O34.13 Maternal care for benign tumor of corpus uteri, third trimester; D25.9 Leiomyoma of uterus, unspecified; Z3A.39 39 weeks gestation of pregnancy; Z37.0 Single live birth; Z88.0 Allergy status to penicillin; Z87.442 Personal history of urinary calculi; Z79.899 Other long term (current) drug therapy; Z86.16 Personal history of COVID-19
CPT/HCPCS: 01961; 36415; 59025; 85025; 86592; 86850; 86900; 86901; 94762; A9270-GY; J0690; J1885; J2270; J2300; J2405; J2590; J2765; J3490; J7120; J7121

== ENCOUNTER 2022-06-30 13:34 | Inpatient (IN) | payer MEDICAID ==
[2022-06-30] MEDS ORDERED: Ondansetron 4 MG/2 ML SDV IVPUSH ONE (14:00)
[2022-06-30] MEDS ORDERED: Lactated Ringers 1,000 ML IV ONE (14:00)
[2022-06-30] MEDS ORDERED: Ketorolac 15 MG/ML SDV IVPUSH ONE ×2 (14:00→16:03)
[2022-06-30] MEDS ORDERED: Morphine 4 MG/ML Syringe IVPUSH ONE ×2 (14:45→15:02)
[2022-06-30] MEDS: Potassium Chloride 10 MEQ in Premix Bag 1 BAG IV SCH ×8 (15:07→23:58)
[2022-06-30] MEDS ORDERED: Sodium Chloride 0.9% 1,000 ML IV SCH (15:15)
[2022-06-30] MEDS ORDERED: Magnesium Sulfate/Water 2 GM in Premix Bag 1 BAG IV ONE (15:30)
[2022-06-30] MEDS ORDERED: Morphine 2 MG/ML SYRINGE IVPUSH PRN (16:02)
[2022-06-30] MEDS ORDERED: Sodium Chloride 0.9% 10 ML Syringe FLUSH STA (16:14)
[2022-06-30] MEDS ORDERED: Iopamidol 612 MG/ML 100 ML Bottle IVPUSH ONE (16:14)
[2022-06-30] MEDS ORDERED: HYDROmorphone 1 MG/ML Syringe IVPUSH ONE (16:17)
[2022-06-30] MEDS ORDERED: Sodium Chloride 0.9% 10 ML Syringe FLUSH PRN (16:21)
[2022-06-30] MEDS ORDERED: Ondansetron 4 MG Tab.DIS PO PRN (16:23)
[2022-06-30] MEDS: HYDROmorphone 1 MG/ML Syringe IVPUSH PRN ×2 (18:18→21:42)
[2022-06-30] MEDS: Sodium Chloride 0.9% 1,000 ML IV SCH (20:24)
[2022-06-30] MEDS: Ondansetron 4 MG/2 ML SDV IV PRN (20:30)
[2022-06-30] MEDS: Heparin Sodium 5,000 Units/ML Vial SUBCUT SCH (20:42)
[2022-07-01] MEDS: Sodium Chloride 0.9% 1,000 ML IV SCH ×6 (00:37→23:58)
[2022-07-01] MEDS: Heparin Sodium 5,000 Units/ML Vial SUBCUT SCH ×3 (00:38→16:21)
[2022-07-01] MEDS: Potassium Chloride 10 MEQ in Premix Bag 1 BAG IV SCH ×2 (00:38→00:48)
[2022-07-01] MEDS: HYDROmorphone 1 MG/ML Syringe IVPUSH PRN ×9 (00:39→23:58)
[2022-07-01] MEDS: Ondansetron 4 MG/2 ML SDV IV PRN (03:02)
[2022-07-01] MEDS: Insulin Lispro 100 Unit/ML 3 ML KwikPen SUBCUT SCH (18:16)
[2022-07-02] MEDS: Insulin Lispro 100 Unit/ML 3 ML KwikPen SUBCUT SCH ×4 (00:03→18:01)
[2022-07-02] MEDS: Heparin Sodium 5,000 Units/ML Vial SUBCUT SCH ×3 (00:07→17:59)
[2022-07-02] MEDS: HYDROmorphone 1 MG/ML Syringe IVPUSH PRN ×6 (03:32→22:24)
[2022-07-02] MEDS: Sodium Chloride 0.9% 1,000 ML IV SCH ×6 (03:33→22:24)
[2022-07-03] MEDS: Insulin Lispro 100 Unit/ML 3 ML KwikPen SUBCUT SCH ×5 (00:43→23:22)
[2022-07-03] MEDS: Heparin Sodium 5,000 Units/ML Vial SUBCUT SCH ×5 (00:44→23:32)
[2022-07-03] MEDS: HYDROmorphone 1 MG/ML Syringe IVPUSH PRN ×3 (01:13→07:29)
[2022-07-03] MEDS: Sodium Chloride 0.9% 1,000 ML IV SCH ×3 (03:30→14:11)
[2022-07-03] MEDS: Morphine 2 MG/ML SYRINGE IVPUSH PRN ×3 (10:15→18:14)
[2022-07-03] MEDS ORDERED: Sodium Chloride 0.9% 1,000 ML IV SCH ×3 (19:00→23:00)
[2022-07-03] MEDS ORDERED: Morphine 2 MG/ML SYRINGE IVPUSH ONE (20:15)
[2022-07-03] MEDS ORDERED: LORazepam 2 MG/ML SDV IVPUSH ONE (20:15)
[2022-07-04] MEDS: Morphine 2 MG/ML SYRINGE IVPUSH PRN ×6 (00:21→21:22)
[2022-07-04] MEDS: Insulin Lispro 100 Unit/ML 3 ML KwikPen SUBCUT SCH ×4 (06:57→21:34)
[2022-07-04] MEDS: Sodium Chloride 0.9% 1,000 ML IV SCH ×2 (06:58→16:53)
[2022-07-04] MEDS: Potassium Chloride 10 MEQ in Premix Bag 1 BAG IV SCH ×8 (06:59→16:33)
[2022-07-04] MEDS ORDERED: LORazepam 2 MG/ML SDV IV SCH (07:00)
[2022-07-04] MEDS: Folic Acid 1 MG Tab PO SCH (08:34)
[2022-07-04] MEDS: Heparin Sodium 5,000 Units/ML Vial SUBCUT SCH ×2 (08:34→16:53)
[2022-07-04] MEDS: Thiamine 100 MG Tab PO SCH (08:34)
[2022-07-04] MEDS: LORazepam 1 MG Tab PO SCH ×2 (21:31→22:30)
[2022-07-05] MEDS: Morphine 2 MG/ML SYRINGE IVPUSH PRN ×3 (01:26→14:42)
[2022-07-05] MEDS: Heparin Sodium 5,000 Units/ML Vial SUBCUT SCH ×2 (01:26→09:08)
[2022-07-05] MEDS: Sodium Chloride 0.9% 1,000 ML IV SCH (03:41)
[2022-07-05] MEDS: LORazepam 1 MG Tab PO SCH (03:45)
[2022-07-05] MEDS ORDERED: Insulin Lispro 100 Unit/ML 3 ML KwikPen SUBCUT SCH (07:30)
[2022-07-05] MEDS ORDERED: Potassium Chloride 20 MEQ Tab.ER PO ONE (08:00)
[2022-07-05] MEDS: Folic Acid 1 MG Tab PO SCH (09:07)
[2022-07-05] MEDS: Thiamine 100 MG Tab PO SCH (09:07)
[2022-07-05] MEDS: Insulin Lispro 100 Unit/ML 3 ML KwikPen SUBCUT SCH ×2 (09:08→11:12)
[2022-07-05] MEDS ORDERED: LORazepam 0.5 MG Tab PO ONE (09:43)
[2022-07-05] MEDS ORDERED: Lactated Ringers 1,000 ML IV SCH ×2 (09:45→12:15)
[2022-07-05] MEDS ORDERED: Iopamidol 612 MG/ML 100 ML Bottle IVPUSH ONE (10:36)
[2022-07-05] MEDS: Acetaminophen/oxyCODONE 325-5 MG Tab PO PRN ×2 (11:07→16:20)
[2022-07-05] MEDS ORDERED: Iopamidol 755 Mg/ML 100 ML Bottle IVPUSH ONE (12:27)
[2022-07-05] MEDS ORDERED: Sodium Chloride 0.9% 10 ML Syringe FLUSH PRN (12:27)
[2022-07-05] MEDS ORDERED: Sodium Chloride 0.9% 100 ML IV SCH (12:30)
[2022-07-05 12:31] VITALS: PULSE 96
[2022-07-05] MEDS ORDERED: Meropenem 500 MG in Sodium Chloride 0.9% 50 ML IV ONE (13:45)
[2022-07-05] MEDS ORDERED: LORazepam 2 MG/ML SDV IVPUSH ONE (14:48)
[2022-07-05 15:12] VITALS: BP 154/87
== END 2022-07-05 16:28 | DRG 439 ==
LOC: JD.ED 13:34 → JD.MS 16:19
PROVIDERS: ADMIT Hospitalist; ATTEND Hospitalist
DX: K85.21 Alcohol induced acute pancreatitis with uninfected necrosis (principal); F10.239 Alcohol dependence with withdrawal, unspecified; E87.6 Hypokalemia; F41.9 Anxiety disorder, unspecified; F32.A Depression, unspecified; F17.200 Nicotine dependence, unspecified, uncomplicated; Z88.0 Allergy status to penicillin; Z79.899 Other long term (current) drug therapy; Z87.442 Personal history of urinary calculi
CPT/HCPCS: 36415; 36600; 71045; 71045-26; 71275; 71275-26; 74177; 74177-26; 76705; 76705-26; 80053; 80307; 81001; 82803; 82947; 83605; 83615; 83690; 83735; 84145; 85025; 85379; 93005; 93010; 94760; 96361; 96365; 96366; 96367; 96368; 96375; 99222; 99232; 99233; 99239; 99285-25; 99291; A9270-GY; J1170; J1644; J1815; J1885; J2060; J2185; J2270; J2405; J3475; J3480; J3490; J7030; J7120; Q9967